=== PATIENT | male | born 1955 | race Caucasian/White ===

== ENCOUNTER 2023-04-15 17:31 | Outpatient (CLI) | payer MEDICARE, OTHER ==
--- NOTE | 2023-04-16 10:47 | Ultrasound Report ---
PROCEDURE: Duplex Ext Veins Right INDICATIONS: RT LOWER LEG SWELLING TECHNIQUE: Real-time imaging, as well as color and pulse Doppler interrogation, were performed of the lower extr emity deep veins from the inguinal ligament to the popliteal fossa. Attempted visualization of the ca lf veins was performed. COMPARISON: None. FINDINGS: The deep veins are normally compressible, and free of intraluminal thrombus. Color and pu lse Doppler demonstrate normal phasic intraluminal flow. There is normal augmentation response to di stal compression maneuver. IMPRESSION: No deep venous thrombosis of the visualized right lower extremity. Reviewed by: DUYEN Ugalde on 04/16/2023 10:46 AM PDT Approved by: Jack Alvarado MD on 04/16/2023 10:46 AM PDT Station ID: [id number]
--- NOTE | 2023-04-16 10:48 | Ultrasound Report ---
PROCEDURE: Ext Limited Non Vascular INDICATIONS: Right lower leg palpable mass TECHNIQUE: Real-time scanning was performed of the right lower leg, with image documentation. COMPARISON: None FINDINGS: No mass, fluid collection or lymphadenopathy seen in the region of interest involving the right calf. IMPRESSION: No sonographic abnormality involving the region of interest in the right calf. Reviewed by: DUYEN Ugalde on 04/16/2023 10:46 AM PDT Approved by: Jack Alvarado MD on 04/16/2023 10:46 AM PDT Station ID: [id number]
== END 2023-04-15 17:32 | disposition home or self-care (01) ==
LOC: DI 17:31
PROVIDERS: ATTEND Physician Assistant Medical
DX: R22.41 Localized swelling, mass and lump, right lower limb (principal)

== ENCOUNTER 2023-11-24 07:13 | Outpatient (CLI) | payer MEDICARE, OTHER ==
[2023-11-24 14:58] LABS: PSA TOTAL 3.104 ng/mL (0.000-2.000)
== END 2023-11-24 07:14 | disposition home or self-care (01) ==
LOC: LAB.S 07:13
PROVIDERS: ATTEND Urology
DX: R97.20 Elevated prostate specific antigen [PSA] (principal)
CPT/HCPCS: 36415; 84153; 84154